=== PATIENT | female | born 1955 | race Caucasian/White ===

== ENCOUNTER 2016-12-30 07:38 | Emergency (ER) | payer BC ==
[2016-12-30 07:53] VITALS: BP 130/69
[2016-12-30] MEDS ORDERED: Lidocaine 2% W/EPI 1:100,000* 20 ML MDV ONE (08:09)
--- NOTE | 2016-12-30 09:08 | UC ---
Laceration HPI - HPI Summary HPI Summary: laceration about right eye x 2 hrs s/p fall this morning , hit her face and cut about her right eye, no loc + 7 days hx of not feeling well, fatigue , sore throat , no fever , no chills - History Of Current Complaint Chief Complaint: UCLaceration Stated Complaint: FACIAL LACERATION RIGHT EYE Time Seen by Provider: 12/30/16 08:00 Hx Obtained From: Patient Laceration Location: Face - right forehead , above the right eye Mechanism Of Injury: Blunt Trauma Onset/Duration: Sudden Onset, Lasting Hours - 2, Still Present Severity: Moderate Aggravating Factors: Movement Facial Trauma: 1 - 2 cm laceration - Allergies/Home Medications Allergies/Adverse Reactions: Allergies Allergy/AdvReac Type Severity Reaction Status Date / Time No Known Allergies Allergy Verified 12/30/16 07:53 PMH/Surg Hx/FS Hx/Imm Hx Endocrine History Of: Denies: Diabetes Cancer History Of: Denies: Breast Cancer - Surgical History Surgical History: Yes Surgery Procedure, Year, and Place: bilateral hip, - Family History Known Family History: Negative: Diabetes - Social History Alcohol Use: None Substance Use Type: None Smoking Status (MU): Never Smoked Tobacco - Immunization History Most Recent Tetanus Shot: UTD Review of Systems Constitutional: Negative Skin: Negative Eyes: Negative ENT: Sore Throat, Nasal Discharge Respiratory: Cough Cardiovascular: Negative All Other Systems Reviewed And Are Negative: Yes Physical Exam Triage Information Reviewed: Yes Appearance: Well-Appearing, No Pain Distress, Well-Nourished Vital Signs: Initial Vital Signs Temp 98.3 F 12/30/16 07:42 Pulse 61 12/30/16 07:42 Resp 16 12/30/16 07:42 BP 130/69 12/30/16 07:42 Pulse Ox 97 12/30/16 07:42 Vital Signs Reviewed: Yes Eye Exam: Normal Eyes: Positive: Conjunctiva Clear ENT: Positive: Normal ENT inspection, Hearing grossly normal, Pharynx normal Neck: Positive: Supple, Nontender, No Lymphadenopathy Respiratory: Positive: Chest non-tender, Lungs clear, Normal breath sounds Cardiovascular: Positive: RRR, No Murmur, Pulses Normal Abdominal Exam: Normal Abdomen Description: Positive: Nontender, Soft Bowel Sounds: Positive: Present Musculoskeletal Exam: Normal Musculoskeletal: Positive: Strength Intact, ROM Intact, No Edema Neurological Exam: Normal Neurological: Positive: Alert, Muscle Tone Normal. Negative: Lethargic Skin: Positive: Other - + 2 cm laceration above right eye Laceration Repair - Laceration Repair 1 Description: Linear Laceration Size After Repair: Length (cm) - 2, Width (mm) - 2, Depth (mm) - 3 Modified For Repair: No Anesthesia Used: 2.0% Lido - 5 cc Additive Used (in ml): Epi Cleansing Completed Via Routine Prep: Yes Irrigation With Pressure Irrigation Device: Yes Closure Material: Sutures Closure Method: Single Layer Suture Of: Skin Suture Type: Nylon - 5.0 nylon x 7 Laceration Course/Dx - Differential Dx - Laceration/Wound Provider Diagnoses: laceration right forehead. viral illness Discharge - Discharge Plan Condition: Stable Disposition: HOME Prescriptions: Acetaminop/Codeine 30 MG TAB* [Tylenol/Codeine 30 MG TAB*] 1 tab PO Q8H PRN #20 tab MDD 3 tabs PRN Reason: Pain Patient Education Materials: Laceration (ED) Referrals: Marlon Cooper MD [Primary Care Provider] - 6 Days Additional Instructions: suture removal in 6 days
== END 2016-12-30 09:19 | disposition home or self-care (01) ==
LOC: UCCORT 07:38
DX: S01.81XA Laceration without foreign body of other part of head, initial encounter (principal); W18.39XA Other fall on same level, initial encounter; W22.8XXA Striking against or struck by other objects, initial encounter; B97.89 Other viral agents as the cause of diseases classified elsewhere
CPT/HCPCS: 12011; 87502; 87651; 99212; G0463

== ENCOUNTER 2017-01-05 14:43 | Emergency (ER) | payer BC ==
[2017-01-05 14:59] VITALS: BP 137/69
--- NOTE | 2017-01-05 15:10 | UC ---
HPI Wound/Suture Re-check - HPI Summary HPI Summary: Here for suture removal from facial lac. Fell 6 days ago, was sutured in [facility] by Dr. Vann. No pain, drainage, or redness. - History Of Current Complaint Chief Complaint: UCLaceration Stated Complaint: STICHES REMOVAL Time Seen by Provider: 01/05/17 15:01 Hx Obtained From: Patient Onset/Duration: Sudden Onset Severity: Mild - Allergies/Home Medications Allergies/Adverse Reactions: Allergies Allergy/AdvReac Type Severity Reaction Status Date / Time No Known Allergies Allergy Verified 01/05/17 14:59 PMH/Surg Hx/FS Hx/Imm Hx Previously Healthy: Yes Endocrine History Of: Denies: Diabetes Cancer History Of: Denies: Breast Cancer - Surgical History Surgical History: Yes Surgery Procedure, Year, and Place: bilateral hip, - Family History Known Family History: Negative: Diabetes - Social History Lives: With Family Alcohol Use: None Substance Use Type: None Smoking Status (MU): Never Smoked Tobacco - Immunization History Most Recent Tetanus Shot: UTD Review of Systems Constitutional: Negative Skin: Other - suture removal Eyes: Negative ENT: Negative Respiratory: Negative Cardiovascular: Negative Gastrointestinal: Negative Genitourinary: Negative Motor: Negative Neurovascular: Negative Musculoskeletal: Negative Neurological: Negative Psychological: Negative All Other Systems Reviewed And Are Negative: Yes Physical Exam Triage Information Reviewed: Yes Appearance: Well-Appearing, No Pain Distress, Well-Nourished Vital Signs: Initial Vital Signs Temp 98.0 F 01/05/17 14:55 Pulse 72 01/05/17 14:55 Resp 17 01/05/17 14:55 BP 137/69 01/05/17 14:55 Pulse Ox 98 01/05/17 14:55 Vital Signs Reviewed: Yes Eye Exam: Normal Eyes: Positive: Conjunctiva Clear ENT Exam: Normal ENT: Positive: Normal ENT inspection, Hearing grossly normal, Pharynx normal, TMs normal Dental Exam: Normal Neck exam: Normal Neck: Positive: Supple, Nontender, No Lymphadenopathy Respiratory Exam: Normal Respiratory: Positive: Chest non-tender, Lungs clear, Normal breath sounds, No respiratory distress, No accessory muscle use Cardiovascular Exam: Normal Cardiovascular: Positive: RRR, No Murmur Neurological Exam: Normal Psychological Exam: Normal Skin Exam: Other - #6 sutures removed from R eyebrow on exam. Pt chastity well. Course/Dx - Differential Dx - Laceration/Wound Provider Diagnoses: R eyebrow suture removal Discharge - Discharge Plan Condition: Stable Disposition: HOME Patient Education Materials: Stitches Removal (ED) Referrals: Marlon Cooper MD [Primary Care Provider] - If Needed
== END 2017-01-05 15:20 | disposition home or self-care (01) ==
LOC: UCCORT 14:43
DX: Z48.02 Encounter for removal of sutures (principal)

== ENCOUNTER 2023-05-14 11:34 | Observation (INO) ==
[2023-05-14] MEDS ORDERED: NS 0.9% 1000 ml BAG 1,000 ML IV ONE ×2 (11:43→13:11)
[2023-05-14 11:54] LABS: ABS Basophils 0.1 10^3/uL (0.0-0.1); ABS Lymphocytes 1.6 10^3/uL (1.0-4.8); ABS Monocytes 0.6 10^3/uL (0.0-0.9); ABS Neutrophils 5.7 10^3/uL (1.5-7.6); ABS Nucleated RBC 0.01 10^3/ul; Eosinophil % 0.3 %; Hematocrit 43.3 % (35-45); Hemoglobin 14.2 g/dL (11.5-14.3); Lymphocyte % 20.1 %; Mean Corpuscular Hemoglobin 30.3 pg (27-33); Mean Corpuscular Hgb Conc 32.8 g/dL (31-36); Mean Corpuscular Volume 92.2 fL (80-97); Mean Platelet Volume 9.2 fL (7.5-11.2); Nucleated Red Blood Cells % 0.1 /100 WBC (0.0-0.4); Platelet Count 250 10^3/uL (150-450); Red Cell Distribution Width 14.6 % (12-17)
[2023-05-14 12:06] LABS: INR 2.12 (0.88-1.18)
[2023-05-14 12:44] LABS: Albumin 4.2 g/dL (3.2-5.2); Albumin/Globulin Ratio 1.4 (1-3); Calcium 9.6 mg/dL (8.6-10.3); Creatinine, Serum 0.96 mg/dL (0.51-0.95); Potassium 4.8 mmol/L (3.5-5.0); Total Bilirubin 1.3 mg/dL (0.2-1.0); Total Protein 7.2 g/dL (6.4-8.9); eGFR CKD-EPI 65.7 (>60)
[2023-05-14] MEDS ORDERED: Iohexol 350 (CONTRAST) 500 ML MDV IV ONE (13:06)
[2023-05-14 13:20] LABS: Urine Appearance Clear; Urine Bilirubin Negative (Negative); Urine Blood Negative (Negative); Urine Color Yellow; Urine Glucose Negative (Negative); Urine Ketones Negative (Negative); Urine Nitrite Negative (Negative); Urine Protein 2+(100 mg/dL) (Negative); Urine Urobilinogen Negative (Negative)
[2023-05-14 13:22] LABS: Magnesium 1.8 mg/dL (1.9-2.7); Phosphorus 4.1 mg/dL (2.5-5.0)
[2023-05-14 13:23] LABS: Urine Bacteria 1+ (Absent); Urine Red Blood Cell Absent (Absent); Urine Squamous Epithelial Cell Present (Absent); Urine White Blood Cell 1+(6-10/hpf) (Absent)
[2023-05-14] MEDS ORDERED: Magnesium Sulfate 2 gm BAG 2 GM/50 ML BAG IVPB ONE (13:52)
[2023-05-14] MEDS ORDERED: Furosemide 20 mg/2 ml IV VIAL IV ONE (14:59)
[2023-05-14] MEDS ORDERED: Flumazenil 0.5 mg/5 ml 0.1 MG/ML 5 ml VIAL ONE (15:28)
[2023-05-14] MEDS ORDERED: Midazolam 5 mg/5 ml VIAL 1 mg/ml 5 ml VIAL (5 mg) ONE (15:28)
[2023-05-14] MEDS ORDERED: fentaNYL 100 mcg/2 ml 50 MCG/ML VIAL ONE (15:28)
[2023-05-14] MEDS ORDERED: Naloxone 0.4 mg VIAL 0.4 mg/ml 1 ml VIAL ONE (15:28)
[2023-05-14] MEDS ORDERED: Furosemide 20 mg/2 ml IV VIAL ONE (16:41)
[2023-05-14] MEDS ORDERED: Midazolam 10 mg/10 ml VIAL 1 mg/ml 10 ml VIAL (10 mg) IV SLOW PU ONE (17:58)
[2023-05-14] MEDS ORDERED: fentaNYL 100 mcg/2 ml 50 MCG/ML VIAL IV SLOW PU ONE (17:58)
[2023-05-14] MEDS ORDERED: Naloxone 0.4 mg VIAL 0.4 mg/ml 1 ml VIAL IV PUSH PRN (17:58)
[2023-05-15 05:58] LABS: Calcium 8.8 mg/dL (8.6-10.3); Creatinine, Serum 0.99 mg/dL (0.51-0.95); HDL Cholesterol 40.6 mg/dL; Potassium 4.8 mmol/L (3.5-5.0); eGFR CKD-EPI 63.3 (>60)
[2023-05-15 06:11] LABS: TSH Ultra Thyroid Stim Horm 2.75 mcIU/mL (0.34-5.60)
[2023-05-15] MEDS ORDERED: Benzocaine (plain) Lozenge 15 MG MT PRN (15:02)
[2023-05-16 18:18] VITALS: BP 119/90
== END 2023-05-16 11:52 | disposition home or self-care (01) ==
LOC: EDHOLD 11:34 → ED 11:34 → MEDTELE 15:24
PROVIDERS: ADMIT Student in an Organized Health Care Education/Training Program; ATTEND Internal Medicine
PROC: CARDVER (ICD-10-PCS; 2023-05-14 15:20)